=== PATIENT | male | born 1965 | race African-American/Black ===

== ENCOUNTER 2018-04-08 13:13 | Emergency (ER) | payer MEDICARE, MEDICAID ==
[~2018-04-08] VITALS: Ht 177.8 cm; Wt 85.0 kg
[2018-04-08] MEDS ORDERED: LORAZEPAM 0.5MG TABLET PO ONE (14:30)
[2018-04-08 15:06] LABS: CHLORIDE 98 mEq/L (98-107)
[2018-04-08 15:12] LABS: ETHANOL BLOOD < 10 mg/dL
[2018-04-08 15:15] LABS: BASOPHILS % 0.7 % (0.0-2.0); EOSINOPHILS % 0.1 % (0.0-5.0); HEMATOCRIT. 38.7 % (42.0-52.0); HEMOGLOBIN. 12.9 g/dL (14.0-18.0); LYMPHOCYTES % 24.4 % (20.0-50.0); MEAN PLATELET VOLUME 8.1 fl (7.4-10.4); MONOCYTES % 5.9 % (2.0-8.0); NEUTROPHILS % 68.9 % (40.0-76.0); PLATELET 247 x1000/uL (130-400); RED CELL DISTRIBUTION WIDTH 15.1 % (11.6-14.6)
[2018-04-08] MEDS ORDERED: POTASSIUM CHLORIDE 20MEQ TABLET SR PO ONE (21:15)
[2018-04-08 21:36] VITALS: BP 132/99
== END 2018-04-08 21:34 | disposition home or self-care (01) ==
LOC: ER 13:32
DX: R44.0 Auditory hallucinations (principal); E87.6 Hypokalemia; R44.1 Visual hallucinations; F17.200 Nicotine dependence, unspecified, uncomplicated; F15.10 Other stimulant abuse, uncomplicated; Z98.890 Other specified postprocedural states
CPT/HCPCS: 36415; 80053; 80307; 80329; 85025; 93005; 99285; G0482